=== PATIENT | male | born 1950 | race Caucasian/White ===

== ENCOUNTER 2017-10-17 05:19 | Inpatient (IN) | payer OTHER ==
[~2017-10-17] VITALS: Ht 162.6 cm; Wt 79.4 kg
[~2017-10-17 05:19] MED LIST: ACETAMINOPHEN 500 MG TABLET PO ONE; ALVIMOPAN 12 MG CAPSULE PO ONE; CELECOXIB 200 MG CAPSULE PO ONE; GABAPENTIN 300 MG CAPSULE PO ONE; LOVA20TA2 PO; METO-442 PO; MUPIROCIN 2% TOPICAL OINTMENT 22 GM TP PRN; NACL 0.9% 1,000 ML IV ONE; TRANEXAMIC ACID 650 MG TABLET PO ONE; cefOXitin 2 GM IVPB PREMIX 50 ML IV ONE; oxyCODONE HCL 10 MG TAB.ER.12H PO ONE
[2017-10-17] MEDS ORDERED: ALVIMOPAN 12 MG CAPSULE PO ONE ×2 (06:00→06:01)
[2017-10-17] MEDS ORDERED: NACL 0.9% 1,000 ML IV ONE (07:00)
[2017-10-17] MEDS ORDERED: TRANEXAMIC ACID 650 MG TABLET PO ONE (07:00)
[2017-10-17] MEDS ORDERED: CELECOXIB 200 MG CAPSULE PO ONE (07:00)
[2017-10-17] MEDS ORDERED: ACETAMINOPHEN 500 MG TABLET PO ONE (07:00)
[2017-10-17] MEDS ORDERED: oxyCODONE HCL 10 MG TAB.ER.12H PO ONE (07:00)
[2017-10-17] MEDS ORDERED: cefOXitin 2 GM IVPB PREMIX 50 ML IV ONE (07:00)
[2017-10-17] MEDS ORDERED: MUPIROCIN 2% TOPICAL OINTMENT 22 GM TP PRN (07:00)
[2017-10-17] MEDS ORDERED: GABAPENTIN 300 MG CAPSULE PO ONE (07:00)
[2017-10-17] MEDS ORDERED: SEVOFLURANE 15 MIN GAS INH ONE (07:31)
[2017-10-17] MEDS ORDERED: BUPIVACAINE LIPOSOME/PF 266 MG/20 ML VIAL INFIL ONE (07:31)
[2017-10-17] MEDS ORDERED: PROPOFOL 200MG/ 20ML VIAL (DIPRIVAN) IV ONE (07:31)
[2017-10-17] MEDS ORDERED: METOPROLOL TARTRATE 5 MG/5 ML VIAL IVP ONE (07:31)
[2017-10-17] MEDS ORDERED: NS IRRIG SOLN 1000 ML IR ONE (07:31)
[2017-10-17] MEDS ORDERED: fentaNYL CITRATE/PF 100 MCG/2 ML AMP IVP ONE (07:31)
[2017-10-17] MEDS ORDERED: ROCURONIUM BROMIDE 10 MG/ML (ZEMURON) IV ONE (07:31)
[2017-10-17] MEDS ORDERED: KETOROLAC TROMETHAMINE 30 MG VIAL IVP ONE (07:31)
[2017-10-17] MEDS ORDERED: MEPERIDINE HCL/PF 100 MG/ML AMP IM ONE (07:31)
[2017-10-17] MEDS ORDERED: ONDANSETRON HCL 4 MG/2 ML VIAL IVP ONE (07:31)
[2017-10-17] MEDS ORDERED: cefOXitin SODIUM 2 GM/VIAL (MEFOXIN) IV ONE (07:31)
[2017-10-17] MEDS ORDERED: GLYCOPYRROLATE 0.2 MG/ML VIAL IJ ONE (07:31)
[2017-10-17] MEDS ORDERED: MIDAZOLAM HCL 5 MG/5 ML VIAL IVP ONE (07:31)
[2017-10-17] MEDS ORDERED: LR 1,000 ML IV ONE (08:50)
[2017-10-17] MEDS ORDERED: DIPHENHYDRAMINE INJ 50 MG/ML VIAL IVP PRN (09:00)
[2017-10-17] MEDS ORDERED: KETOROLAC TROMETHAMINE 30 MG VIAL IM PRN (09:00)
[2017-10-17] MEDS ORDERED: NALOXONE HCL 0.4 MG/ML AMP (NARCAN) IVP PRN (09:00)
[2017-10-17] MEDS ORDERED: NALBUPHINE HCL 10 MG/ML AMP IVP PRN (09:00)
[2017-10-17] MEDS ORDERED: ONDANSETRON HCL 4 MG/2 ML VIAL IVP PRN ×3 (09:00→10:15)
[2017-10-17] MEDS ORDERED: ePHEDrine sulfate 50 MG/ML VIAL IVP PRN (09:00)
[2017-10-17] MEDS ORDERED: ACETAMINOPHEN 325 MG TABLET PO PRN (10:15)
[2017-10-17] MEDS ORDERED: HYDROcodone/ACETAMIN 5-325 MG TAB (NORCO/ VICODIN) PO PRN (10:15)
[2017-10-17] MEDS ORDERED: HYDROmorphone 1 MG INJ. 1 MG/ML AMPUL IVP PRN (10:15)
[2017-10-17] MEDS ORDERED: fentaNYL CITRATE/PF 100 MCG/2 ML AMP ONE (10:42)
[2017-10-17] MEDS: fentaNYL CITRATE/PF 100 MCG/2 ML AMP IVP PRN ×2 (10:45→11:06)
[2017-10-17 10:49] LABS: HEMATOCRIT 45.7 % (36-54); HEMOGLOBIN 15.4 g/dL (14.0-18.0)
[2017-10-17 11:07] LABS: CALCIUM 8.4 mg/dL (8.4-11.0); CREATININE 1.08 mg/dL (0.55-1.30)
[2017-10-17 11:45] VITALS: BP_SYST 179
[2017-10-17 11:46] VITALS: BP_SYST 179
[2017-10-17] MEDS: HYDROcodone/ACETAMIN 5-325 MG TAB (NORCO/ VICODIN) PO PRN ×2 (11:58→16:56)
[2017-10-17] MEDS: D5/0.45 NS 1,000 ML IV SCH ×2 (12:54→21:16)
[2017-10-17] MEDS ORDERED: PROMETHAZINE HCL 25 MG/ML AMP IM PRN (13:30)
[2017-10-17] MEDS: MEPERIDINE HCL/PF 50 MG/ML AMP IM PRN ×3 (14:07→22:34)
[2017-10-17 16:00] VITALS: BP_SYST 111
[2017-10-17 21:08] VITALS: BP_SYST 112
[2017-10-17] MEDS: ALVIMOPAN 12 MG CAPSULE PO SCH (21:15)
[2017-10-17] MEDS: FAMOTIDINE PF 20 MG/2 ML VIAL IVP SCH (21:15)
[2017-10-17] MEDS: cefOXitin SODIUM 2 GM in D5W 100 ML IV SCH (21:16)
[2017-10-18 00:07] VITALS: BP_SYST 109
[2017-10-18] MEDS: MEPERIDINE HCL/PF 50 MG/ML AMP IM PRN (02:10)
[2017-10-18 06:45] LABS: HEMOGLOBIN 12.8 g/dL (14.0-18.0); MEAN CORPUSCULAR HEMOGLOBIN 32 pg (27-31); MEAN CORPUSCULAR HGB CONC 35 % (32-36); MEAN CORPUSCULAR VOLUME 93 fL (79.0-98.0); PLATELET COUNT (AUTO) 206 K/uL (130-430); RED BLOOD CELL COUNT(AUTO) 3.98 MIL/uL (4.2-6.2); RED CELL DISTRIBUTION WIDTH 12.6 % (9.0-15.0); WHITE BLOOD COUNT (AUTO) 19.5 K/uL (4.8-10.8)
[2017-10-18 07:59] VITALS: BP_SYST 149
[2017-10-18] MEDS: D5/0.45 NS 1,000 ML IV SCH ×2 (09:00→16:08)
[2017-10-18] MEDS: ENOXAPARIN SODIUM 30 MG/0.3 ML SYRINGE SUBCUT SCH (09:02)
[2017-10-18] MEDS: ALVIMOPAN 12 MG CAPSULE PO SCH ×2 (09:02→21:40)
[2017-10-18] MEDS: cefOXitin SODIUM 2 GM in D5W 100 ML IV SCH (09:02)
[2017-10-18 10:07] LABS: CALCIUM 8.2 mg/dL (8.4-11.0); CREATININE 1.12 mg/dL (0.55-1.30)
[2017-10-18 10:12] LABS: ALBUMIN 3.6 g/dL (3.4-4.8); TOTAL BILIRUBIN 1.1 mg/dL (0.0-1.0)
[2017-10-18] MEDS: FAMOTIDINE PF 20 MG/2 ML VIAL IVP SCH ×2 (11:07→21:40)
[2017-10-18 11:08] LABS: BASOPHILS % (MANUAL) 0 % (0-2); EOSINOPHILS % (MANUAL) 0 % (0-7); LYMPHOCYTES % (MANUAL) 5 % (20-46); MONOCYTES % (MANUAL) 6 % (0-11)
[2017-10-18 12:05] VITALS: BP_SYST 141
[2017-10-18 12:56] LABS: BILIRUBIN,URINE NEGATIVE (NEGATIVE); BLOOD, URINE 3+ (NEGATIVE); CLARITY/URINE CLEAR (CLEAR); COLOR,URINE YELLOW (YELLOW); GLUCOSE,URINE NEGATIVE (NEGATIVE); KETONES,URINE NEGATIVE (NEGATIVE); LEUKOCYTE ESTERASE ,URINE NEGATIVE (NEGATIVE); NITRITE, URINE NEGATIVE (NEGATIVE); PH,URINE 5.5 (5.0-8.0); PROTEIN URINE TRACE (NEGATIVE); UROBILINOGEN,URINE 0.2 (0.2-1.0)
[2017-10-18 13:06] LABS: RBC,URINE 0-3 /HPF (0-3)
[2017-10-18 13:07] LABS: BACTERIA,URINE MODERATE /HPF (None Seen); MUCUS,URINE 2+ /LPF (None Seen)
[2017-10-18] MEDS: HYDROcodone/ACETAMIN 5-325 MG TAB (NORCO/ VICODIN) PO PRN (15:55)
[2017-10-18 16:00] VITALS: BP_SYST 134
[2017-10-18] MEDS: METOCLOPRAMIDE HCL 10 MG/2 ML VIAL IVP SCH (17:42)
[2017-10-18 20:00] VITALS: BP_SYST 143
[2017-10-19] MEDS: METOCLOPRAMIDE HCL 10 MG/2 ML VIAL IVP SCH ×3 (00:20→11:43)
[2017-10-19 00:27] VITALS: BP_SYST 128
[2017-10-19] MEDS: HYDROcodone/ACETAMIN 5-325 MG TAB (NORCO/ VICODIN) PO PRN (00:52)
[2017-10-19] MEDS: D5/0.45 NS 1,000 ML IV SCH (06:18)
[2017-10-19 07:15] LABS: HEMATOCRIT 31.4 % (36-54); HEMOGLOBIN 10.7 g/dL (14.0-18.0); MEAN CORPUSCULAR HEMOGLOBIN 32 pg (27-31); MEAN CORPUSCULAR HGB CONC 34 % (32-36); MEAN CORPUSCULAR VOLUME 93 fL (79.0-98.0); PLATELET COUNT (AUTO) 194 K/uL (130-430); RED BLOOD CELL COUNT(AUTO) 3.38 MIL/uL (4.2-6.2); RED CELL DISTRIBUTION WIDTH 12.9 % (9.0-15.0); WHITE BLOOD COUNT (AUTO) 19.5 K/uL (4.8-10.8)
[2017-10-19 07:16] LABS: ALBUMIN 3.3 g/dL (3.4-4.8); CALCIUM 8.3 mg/dL (8.4-11.0); CREATININE 1.02 mg/dL (0.55-1.30); TOTAL BILIRUBIN 0.9 mg/dL (0.0-1.0)
[2017-10-19 08:40] VITALS: BP_SYST 122
[2017-10-19] MEDS: ALVIMOPAN 12 MG CAPSULE PO SCH (08:46)
[2017-10-19] MEDS: FAMOTIDINE PF 20 MG/2 ML VIAL IVP SCH (08:46)
[2017-10-19] MEDS: ENOXAPARIN SODIUM 30 MG/0.3 ML SYRINGE SUBCUT SCH (08:46)
[2017-10-19 10:14] LABS: BASOPHILS % (MANUAL) 0 % (0-2); EOSINOPHILS % (MANUAL) 0 % (0-7); LYMPHOCYTES % (MANUAL) 16 % (20-46); MONOCYTES % (MANUAL) 7 % (0-11)
[2017-10-19 13:05] VITALS: BP_SYST 129
[2017-10-19 13:42] VITALS: BP_SYST 128
== END 2017-10-19 13:30 | disposition home or self-care (01) | DRG 330 ==
LOC: SMU 05:19 → EDSTATUS 07:30 → SMU 10:22
PROVIDERS: ADMIT Colon & Rectal Surgery; ATTEND Colon & Rectal Surgery
PROC: 0DTN4ZZ Resection of Sigmoid Colon, Percutaneous Endoscopic Approach (ICD-10-PCS; 2017-10-17)
PROC: 0DJD8ZZ Inspection of Lower Intestinal Tract, Via Natural or Artificial Opening Endoscopic (ICD-10-PCS; principal; 2017-10-17 07:30)
DX: K56.50 Intestinal adhesions [bands], unspecified as to partial versus complete obstruction (principal); E87.1 Hypo-osmolality and hyponatremia; L82.1 Other seborrheic keratosis; D72.829 Elevated white blood cell count, unspecified; K57.30 Diverticulosis of large intestine without perforation or abscess without bleeding; I10 Essential (primary) hypertension; Z80.0 Family history of malignant neoplasm of digestive organs; Z80.3 Family history of malignant neoplasm of breast; Z86.010 Personal history of colon polyps
CPT/HCPCS: 36415; 80048; 80053; 81000-TC; 85007; 85018-TC; 85027; 87081; 87086; 88307; C1727; C9290; J0694; J1200; J1650; J1885; J2175; J2250; J2405; J2550; J2704; J2765; J3010; J3490; J7060; J7120